=== PATIENT | male | born 1995 | race Hispanic/Latino ===

== ENCOUNTER 2017-03-03 19:48 | Emergency (ER) | payer BC, MEDICAID ==
--- NOTE | 2017-03-03 21:15 | ED.PDOC ---
History of Present Illness - General Chief Complaint: Fever Stated Complaint: fever, cough, and body aches Time Seen by Provider: 03/03/17 21:14 Source: patient Exam Limitations: no limitations Additional Information: COUGH/FEVER/MALAISE. [employer]BER TESTED POS FOR FLU. - History of Present Illness Timing/Duration: other - 2 DAYS Severity: moderate Improving Factors: nothing Worsening Factors: nothing Associated Symptoms: cough, fever/chills, headaches, malaise Allergies/Adverse Reactions: Allergies NO KNOWN ALLERGY Allergy (Unverified 05/01/12 12:33) Home Medications: Ambulatory Orders Sulfa/Trimeth 800/160 (Ds) Tab [Bactrim DS Tab] 1 ea PO BID #20 tab 06/03/15 Oseltamivir Phosphate [Tamiflu] 75 mg PO BID #10 cap 03/03/17 Review of Systems - Review of Systems Constitutional: States: chills, fever, malaise EENTM: States: throat pain. Denies: nose congestion Respiratory: States: cough, other - PROD CLEAR. Denies: short of breath, wheezing Cardiology: Denies: chest pain, syncope Gastrointestinal/Abdominal: Denies: nausea, vomiting Genitourinary: States: no symptoms reported Musculoskeletal: States: muscle pain. Denies: joint pain, joint swelling Skin: States: no symptoms reported Neurological: States: no symptoms reported Endocrine: States: no symptoms reported Hematologic/Lymphatic: States: no symptoms reported Past Medical History (General) - Patient Medical History Hx Seizures: No Hx Stroke: No Hx Dementia: No Hx Asthma: No Hx of COPD: No Hx Cardiac Disorders: No Hx Congestive Heart Failure: No Hx Pacemaker: No Hx Hypertension: No Hx Thyroid Disease: No Hx Diabetes: No Hx Gastroesophageal Reflux: No Hx Renal Disease: No Hx Cancer: No Hx of HIV: No Hx Hepatitis C: No Hx MRSA: No - Vaccination History Hx Tetanus, Diphtheria Vaccination: No Hx Influenza Vaccination: No Hx Pneumococcal Vaccination: No - Social History Hx Tobacco Use: No Hx Chewing Tobacco Use: No Hx Alcohol Use: Yes - occ Hx Substance Use: No Hx Substance Use Treatment: No Hx Depression: No Hx Physical Abuse: No Hx Emotional Abuse: No Hx Suspected Abuse: No Family Medical History - Family History Mother Family History: Unknown Physical Exam - Physical Exam General Appearance: Alert, No apparent distress Eye Exam: bilateral normal Ears, Nose, Throat: hearing grossly normal, normal ENT inspection, normal pharynx Neck: non-tender, full range of motion, supple Respiratory: lungs clear, normal breath sounds Cardiovascular/Chest: no murmur, tachycardia Gastrointestinal/Abdominal: normal bowel sounds, non tender, soft, no organomegaly Back Exam: normal inspection, no CVA tenderness Extremity: normal range of motion, normal inspection Neurologic: alert, normal mood/affect Skin Exam: normal color, warm/dry Lymphatic: no adenopathy Progress - EKG/XRAY/CT XRAY: chest - MILADYS Departure - Departure Clinical Impression: Influenza Time of Disposition: 22:00 Disposition: Discharge to Home or Self Care Condition: Good Departure Forms: ED Discharge - Pt. Copy, Patient Portal Self Enrollment Referrals: Shania Cason NP [Primary Care Provider] - 1-2 Weeks Prescriptions: Oseltamivir Phosphate [Tamiflu] 75 mg PO BID #10 cap Home Medications: Ambulatory Orders Sulfa/Trimeth 800/160 (Ds) Tab [Bactrim DS Tab] 1 ea PO BID #20 tab 06/03/15 Oseltamivir Phosphate [Tamiflu] 75 mg PO BID #10 cap 03/03/17
[2017-03-03 21:19] VITALS: O2SAT 96
[2017-03-03] MEDS: ACETAMINOPHEN 500 MG TAB PO ONE (21:35)
[2017-03-03] MEDS: SODIUM CHLORIDE 0.9% 1000ML 1,000 ML IVS ONE (21:52)
[2017-03-03 22:10] VITALS: BP 113/58
--- NOTE | 2017-03-03 22:19 | RAD ---
EXAM: Chest,2 Views CLINICAL INDICATION: 21-year-old male with cough and fever. TECHNIQUE: Two-view, PA and lateral projections of the chest were obtained. COMPARISON: None. FINDINGS: Unremarkable cardiac and mediastinal silhouette. Heart size is normal. Lungs are clear without focal opacity, pneumothorax or pleural effusions. The visualized bones are within normal limits. IMPRESSION: No acute cardiopulmonary abnormalities. Electronically signed by: Tatiana Ferraro MD 03/03/2017 10:18 PM [facility]
[2017-03-03 22:41] VITALS: TEMP 101.4
== END 2017-03-03 22:35 | disposition home or self-care (01) ==
LOC: ER 19:48
DX: J11.1 Influenza due to unidentified influenza virus with other respiratory manifestations (principal)
CPT/HCPCS: 71020; 87070; 87502; 87651; J7030

== ENCOUNTER 2019-06-07 19:03 | Emergency (ER) | payer SELFPAY ==
[2019-06-07] MEDS ORDERED: MORPHINE SULFATE INJ 10 MG/ML VIAL IM ONE (19:46)
[2019-06-07] MEDS ORDERED: TETANUS-DIPHTHERIA TOXOIDS (TD 1 EA SYG IM ONE (19:47)
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
[2019-06-07] MEDS ORDERED: HYDROcodone 5MG/APAP 325MG 1 EA TAB PO ONE (21:02)
[2019-06-07] MEDS ORDERED: HYDROmorphone HCL INJ 2 MG/ML VIAL IV ONE (21:07)
[2019-06-07] MEDS ORDERED: BACITRACIN 0.9 GM UD PCKT TOP ONE (21:22)
[2019-06-07] MEDS ORDERED: CHLORHEXIDINE GLUCONATE 4 % 15 ML UD TOP ONE (22:05)
[2019-06-07] MEDS ORDERED: HYDROCOD/APAP 10/325 (ER DISP) # 3 tablets PO ONE (22:09)
[2019-06-07] MEDS ORDERED: NEOMYCIN-BACITRACIN-POLYMYXIN 0.9 GM UD TOP ONE ×4 (22:30→22:51)
[2019-06-07 23:09] VITALS: TEMP 98.5
[2019-06-07 23:12] VITALS: BP 134/85; O2SAT 98
== END 2019-06-07 23:17 | disposition home or self-care (01) ==
LOC: ER 19:03
DX: T23.202A Burn of second degree of left hand, unspecified site, initial encounter (principal); T31.0 Burns involving less than 10% of body surface; X08.8XXA Exposure to other specified smoke, fire and flames, initial encounter; Y92.9 Unspecified place or not applicable
CPT/HCPCS: 90714; J1170; J2270; J3490